=== PATIENT | female | born 1985 | race Caucasian/White ===

== ENCOUNTER → 2020-07-02 | Outpatient (CLI) | payer OTHER ==
[~2020-07-02] MED LIST: HUMALOG; [UNRECOGNIZED DRUG - OTHER]; amoxicillin PO
== END | disposition home or self-care (01) ==
LOC: RAD 13:07 → MERGE 13:07
PROVIDERS: ATTEND Orthopaedic Surgery
DX: M25.572 Pain in left ankle and joints of left foot (principal); M79.672 Pain in left foot

== ENCOUNTER 2020-07-27 13:34 | Emergency (ER) | payer OTHER ==
[~2020-07-27] VITALS: Ht 172.7 cm; Wt 65.7 kg
--- NOTE | 2020-07-27 13:58 | NUR ---
PT TO ROOM FROM LOBBY
--- NOTE | 2020-07-27 13:59 | NUR ---
BREAK RN: PT UPRIGHT ON GURNEY AWAKE WITH C/O PERSISTENT PAIN AWAITING ERP, RESPONDS APPROP TO STAFF, COMOFORT MEASURES PROVIDED, CALL LIGHT WITHIN REACH.
[2020-07-27] MEDS ORDERED: OXYcodone/APAP 5/325MG TABLET PO ONE (14:30)
[2020-07-27 14:54] LABS: HCG UR SG 1.037 (1.003-1.030)
[2020-07-27] MEDS ORDERED: OXYcodone/APAP 5/325MG TABLET ONE (15:06)
--- NOTE | 2020-07-27 15:10 | NUR ---
MEDICATED FOR PAIN. AWAITING CT
--- NOTE | 2020-07-27 15:56 | NUR ---
DISCUSSING CT RESULTS WITH PT
[2020-07-27 16:15] VITALS: BP 110/64
== END 2020-07-27 16:30 | disposition home or self-care (01) ==
LOC: ED 15:46
DX: N83.202 Unspecified ovarian cyst, left side (principal); R19.7 Diarrhea, unspecified; E11.9 Type 2 diabetes mellitus without complications
CPT/HCPCS: 74176; 81025; 99284